=== PATIENT | male | born 1985 | race Caucasian/White ===

== ENCOUNTER 2016-12-20 06:25 | Emergency (ER) | payer BC ==
[2016-12-20] MEDS ORDERED: Ondansetron 4 MG/2 ML SDV IVPUSH ONE (06:45)
[2016-12-20] MEDS ORDERED: Sodium Chloride 0.9% 1,000 ML IV SCH (06:45)
[2016-12-20] MEDS ORDERED: Dicyclomine 10 MG Cap PO ONE (06:46)
[2016-12-20 07:10] LABS: CHLORIDE,CL 106 mmol/L (98-110); SODIUM,NA 140 mmol/L (136-146)
--- NOTE | 2016-12-20 08:48 | EDM.PDOC ---
ED HPI GENERAL MEDICAL PROBLEM - General Chief Complaint: Abdominal Pain Stated Complaint: ABDOMINAL PAIN Time Seen by Provider: 12/20/16 08:34 - History of Present Illness INITIAL COMMENTS - FREE TEXT/NARRATIVE: HISTORY AND PHYSICAL: History of present illness: Patient is 31-year-old white male presents concern of vomiting diarrhea times one day he had no fever chills no chest pain cough or other concerns. Review of systems: As per history of present illness and below otherwise all systems reviewed and negative. Past medical history: As per history of present illness and as reviewed below otherwise noncontributory. Surgical history: As per history of present illness and as reviewed below otherwise noncontributory. Social history: No reported history of drug or alcohol abuse. Family history: As per history of present illness and as reviewed below otherwise noncontributory. Physical exam: HEENT: Atraumatic, normocephalic, pupils reactive, negative for conjunctival pallor or scleral icterus, mucous membranes slightly dry, throat clear, neck supple, nontender, trachea midline. Lungs: Clear to auscultation, breath sounds equal bilaterally, chest nontender. Heart: S1S2, regular, negative for clicks, rubs, or JVD. Abdomen: Soft, nondistended, nontender. Negative for masses or hepatosplenomegaly. Negative for costovertebral tenderness. Pelvis: Stable nontender. Genitourinary: Deferred. Rectal: Deferred. Extremities: Atraumatic, negative for cords or calf pain. Neurovascular unremarkable. Neuro: Awake, alert, oriented. Cranial nerves II through XII unremarkable. Cerebellum unremarkable. Motor and sensory unremarkable throughout. Exam nonfocal. Diagnostics: CBC CMP UA stool for C&S O&P and C. difficile CT abdomen and pelvis Therapeutics: Will saline 1 L bolus Zofran 4 mg IV Bentyl 20 mg by mouth Impression: #1 gastroenteritis #2 mild dehydration Definitive disposition and diagnosis as appropriate pending reevaluation and review of above. Abdominal Pain Score (Numeric/FACES): 4 - Related Data Allergies Allergy/AdvReac Type Severity Reaction Status Date / Time No Known Allergies Allergy Verified 12/20/16 06:31 Home Meds: Home Meds . [No Known Home Meds] 12/20/16 [History] Past Medical History HEENT History: Reports: None Cardiovascular History: Reports: None Respiratory History: Reports: None Gastrointestinal History: Reports: None Genitourinary History: Reports: None Musculoskeletal History: Reports: None Neurological History: Reports: None Psychiatric History: Reports: None Endocrine/Metabolic History: Reports: None Hematologic History: Reports: None Oncologic (Cancer) History: Reports: None Dermatologic History: Reports: None - Infectious Disease History Infectious Disease History: Reports: None Social & Family History - Family History Family Medical History: Noncontributory - Tobacco Use Smoking Status *Q: Never Smoker - Caffeine Use Caffeine Use: Reports: Coffee, Energy drinks - Recreational Drug Use Recreational Drug Use: No ED ROS GENERAL - Review of Systems Review Of Systems: ROS reveals no pertinent complaints other than HPI. ED EXAM, GENERAL - Physical Exam Exam: See Below (See dictated) Course - Vital Signs Last Recorded V/S: Last Vital Signs Temp 36.0 C 12/20/16 06:32 Pulse 89 12/20/16 06:32 Resp 16 12/20/16 06:32 BP 163/87 H 12/20/16 06:32 Pulse Ox 97 12/20/16 06:32 - Orders/Labs/Meds Orders: Active Orders 24 hr Category Date Time Status Abdomen Pelvis wo Cont [CT] Stat Exams 12/20/16 06:42 Taken CDIFF TOX A+B [OP] Stat Lab 12/20/16 06:42 Uncollected CULTURE STOOL + CAMPY+SHIGATOX [RM] Stat Lab 12/20/16 06:42 Uncollected WBC, STOOL [OP] Stat Lab 12/20/16 06:45 Uncollected Sodium Chloride 0.9% [Normal Saline] 1,000 ml Med 12/20/16 06:45 Active IV ASDIRECTED Medication Orders Sodium Chloride (Normal Saline) 1,000 mls @ 999 mls/hr IV ASDIRECTED DALE Last Admin: 12/20/16 06:51 Dose: 999 mls/hr Labs: Laboratory Tests 12/20/16 12/20/16 12/20/16 Range/Units 06:40 06:40 08:10 WBC 4.70 (4.0-11.0) K/uL RBC 5.72 (4.50-5.90) M/uL Hgb 16.8 (13.0-17.0) g/dL Hct 50.1 H (38.0-50.0) % MCV 87.6 (80.0-98.0) fL MCH 29.4 (27.0-32.0) pg MCHC 33.5 (31.0-37.0) g/dL RDW Std Deviation 40.3 (28.0-62.0) fl RDW Coeff of Z[place] 13 (11.0-15.0) % Plt Count 239 (150-400) K/uL MPV 10.00 (7.40-12.00) fL Neut % (Auto) 45.9 L (48.0-80.0) % Lymph % (Auto) 41.3 H (16.0-40.0) % Wise % (Auto) 11.3 (0.0-15.0) % Eos % (Auto) 1.3 (0.0-7.0) % Baso % (Auto) 0.2 (0.0-1.5) % Neut # 2.2 (1.4-5.7) K/uL Lymph # 1.9 (0.6-2.4) K/uL Wise # 0.5 (0.0-0.8) K/uL Eos # 0.1 (0.0-0.7) K/uL Baso # 0.0 (0.0-0.1) K/uL Nucleated RBC % 0.0 /100WBC Nucleated RBCs # 0 K/uL Sodium 140 (136-146) mmol/L Potassium 4.0 (3.5-5.1) mmol/L Chloride 106 (98-110) mmol/L Carbon Dioxide 25 (21-31) mmol/L BUN 13 (6.0-23.0) mg/dL Creatinine 1.0 (0.6-1.5) mg/dL Est Cr Clr Drug Dosing 126.73 mL/min Estimated GFR (MDRD) > 60.0 ml/min Glucose 102 (60-110) mg/dL Calcium 9.2 (8.8-10.8) mg/dL Total Bilirubin 1.0 (0.1-1.5) mg/dL AST 24 (5-40) IU/L ALT 42 (8-54) IU/L Alkaline Phosphatase 47 (40-150) Total Protein 7.6 (6.0-8.0) g/dL Albumin 4.0 (3.5-5.0) g/dL Globulin 3.6 H (2.0-3.5) g/dL Albumin/Globulin Ratio 1.1 L (1.3-2.8) Urine Color YELLOW Urine Appearance CLEAR Urine pH 5.5 (5.0-8.0) Ur Specific [place] 1.020 (1.001-1.035) Urine Protein TRACE (NEGATIVE) mg/dL Urine Glucose (UA) NEGATIVE (NEGATIVE) mg/dL Urine Ketones NEGATIVE (NEGATIVE) mg/dL Urine Occult Blood NEGATIVE (NEGATIVE) Urine Nitrite NEGATIVE (NEGATIVE) Urine Bilirubin NEGATIVE (NEGATIVE) Urine Urobilinogen 0.2 (<2.0) EU/dL Ur Leukocyte Esterase NEGATIVE (NEGATIVE) Urine RBC RARE (0-2/HPF) Urine WBC 0-1 (0-5/HPF) Ur Epithelial Cells FEW (NONE-FEW) Urine Bacteria FEW (NEGATIVE) Urine Mucus LIGHT (NONE-MOD) Meds: Medications Generic Name Dose Route Start Last Admin Trade Name Freq PRN Reason Stop Dose Admin Sodium Chloride 1,000 mls @ 999 mls/hr 12/20/16 06:45 12/20/16 06:51 Normal Saline IV 999 mls/hr ASDIRECTED DALE Administration Discontinued Medications Generic Name Dose Route Start Last Admin Trade Name Freq PRN Reason Stop Dose Admin Dicyclomine HCl 20 mg 12/20/16 06:46 12/20/16 06:52 Bentyl PO 12/20/16 06:47 20 mg ONETIME ONE Administration Ondansetron HCl 8 mg 12/20/16 06:45 12/20/16 06:51 Zofran IVPUSH 12/20/16 06:46 8 mg ONETIME ONE Administration Departure - Departure Time of Disposition: 08:47 Disposition: Home, Self-Care 01 Condition: good Clinical Impression: Gastroenteritis, Dehydration Forms: ED Department Discharge Additional Instructions: The following information is given to patients seen in the emergency department who are being discharged to home. This information is to outline your options for follow-up care. We provide all patients seen in our emergency department with a follow-up referral. The need for follow-up, as well as the timing and circumstances, are variable depending upon the specifics of your emergency department visit. If you don't have a primary care physician on staff, we will provide you with a referral. We always advise you to contact your personal physician following an emergency department visit to inform them of the circumstance of the visit and for follow-up with them and/or the need for any referrals to a consulting specialist. The emergency department will also refer you to a specialist when appropriate. This referral assures that you have the opportunity for followup care with a specialist. All of these measure are taken in an effort to provide you with optimal care, which includes your followup. Under all circumstances we always encourage you to contact your private physician who remains a resource for coordinating your care. When calling for followup care, please make the office aware that this follow-up is from your recent emergency room visit. If for any reason you are refused follow-up, please contact the [facility] emergency department at and asked to speak to the emergency department charge nurse. Push fluids clear liquids as directed avoid dairy products x72 hours Motrin or Tylenol as directed Zofran as prescribed return as needed as discussed - My Orders Last 24 Hours: My Active Orders 12/20/16 06:42 Abdomen Pelvis wo Cont [CT] Stat CDIFF TOX A+B [OP] Stat CULTURE STOOL + CAMPY+SHIGATOX [RM] Stat 12/20/16 06:45 WBC, STOOL [OP] Stat Sodium Chloride 0.9% [Normal Saline] 1,000 ml IV ASDIRECTED - Assessment/Plan Last 24 Hours: My Active Orders 12/20/16 06:42 Abdomen Pelvis wo Cont [CT] Stat CDIFF TOX A+B [OP] Stat CULTURE STOOL + CAMPY+SHIGATOX [RM] Stat 12/20/16 06:45 WBC, STOOL [OP] Stat Sodium Chloride 0.9% [Normal Saline] 1,000 ml IV ASDIRECTED
[2016-12-20 08:57] VITALS: BP 126/71
--- NOTE | 2016-12-21 18:23 | CT ---
EXAM DATE: 12/20/16 PATIENT'S AGE: 31 Patient: ALEXX GUILLEN Facility: [place], [place] Site . Site : 1985 Study: CT Abdomen/Pelvis [id number]/5/2017 7:15:18 AM Ordering Physician: Doctor Hendrix Final Report: HISTORY: Generalized abdominal pain, right upper quadrant pain. Vomiting, dizziness. Technique: CT abdomen and pelvis without contrast. Comparison: None. Findings: Abdomen: Unenhanced liver, gallbladder, pancreas, and adrenal glands are unremarkable. Spleen is mildly enlarged measuring 13.5 cm in craniocaudal dimension. No nephroureterolithiasis. No hydronephrosis. No dilated bowel. Appendix is normal. No ascites. No free intraperitoneal gas. No lymphadenopathy. No abdominal aortic aneurysm. Pelvis: No free fluid. No lymphadenopathy. Musculoskeletal: No acute findings. Mild degenerative changes in the thoracic spine. Left sacroiliac joint degenerative changes. Lower chest: 5 mm noncalcified nodule in the right lower lobe (series 201 image 11). Impression: 1. No acute findings in the abdomen or pelvis. 2. Mild splenomegaly. 3. Indeterminate 5 mm pulmonary nodule in the right lower lobe. Recommend followup chest CT in 6-12 months. Dictated by Supa Vera MD @ Dec 20 2016 7:43AM (Electronic Signature) Report Signed by Proxy and Original Signed Document filed in the Medical Record. JENNIFER
== END 2016-12-20 08:56 | disposition home or self-care (01) ==
LOC: MW.ED 06:25
DX: K52.9 Noninfective gastroenteritis and colitis, unspecified (principal); E86.0 Dehydration
CPT/HCPCS: 36415; 74176; 80053; 81001; 85025; 96361; 96374; 99284; A9270; J2405; J7040

== ENCOUNTER 2018-11-19 12:34 | Emergency (ER) | payer BC, OTHER ==
--- NOTE | 2018-11-19 13:07 | EDM.PDOC ---
ED HPI GENERAL MEDICAL PROBLEM - General Chief Complaint: ENT Problem Stated Complaint: SORE THROAT Time Seen by Provider: 11/19/18 13:06 Source of Information: Reports: Patient History Limitations: Reports: No Limitations - History of Present Illness INITIAL COMMENTS - FREE TEXT/NARRATIVE: HISTORY AND PHYSICAL: History of present illness: Patient is a 33-year-old male who presents to the emergency room with complaints of sore throat and bilateral ear fullness 2 days. He states that he has been around a coworker who recently had strep throat and Influenza. He is currently taking Tamiflu prophylactically due to this exposure.. He denies any fever, chills, chest pain, shortness of breath or cough. Denies any abdominal pain, nausea, vomiting, diarrhea or constipation. He has been able to eat and drink appropriately although this does cause some pain. He has been using Tylenol and ibuprofen [id number] with moderate relief. Review of systems: As per history of present illness and below otherwise all systems reviewed and negative. Past medical history: As per history of present illness and as reviewed below otherwise noncontributory. Surgical history: As per history of present illness and as reviewed below otherwise noncontributory. Social history: See social history for further information Family history: As per history of present illness and as reviewed below otherwise noncontributory. Physical exam: General: Well-developed and well-nourished 33-year-old male. Alert and oriented. Nontoxic appearing and in no acute distress. HEENT: Atraumatic, normocephalic, pupils equal and reactive bilaterally, negative for conjunctival pallor or scleral icterus, mucous membranes moist, TMs normal bilaterally, erythema to the posterior oropharynx without exudate, neck supple, nontender, trachea midline. No drooling or trismus noted. No meningeal signs. No hot potato voice noted. Lungs: Clear to auscultation, breath sounds equal bilaterally, chest nontender. Heart: S1S2, regular rate and rhythm without overt murmur Abdomen: Soft, nondistended, nontender. Negative for masses or hepatosplenomegaly. Negative for costovertebral tenderness. Pelvis: Stable nontender. Genitourinary: Deferred. Rectal: Deferred. Skin: Intact, warm, dry. No lesions or rashes noted. Extremities: Atraumatic, negative for cords or calf pain. Neurovascular unremarkable. Neuro: Awake, alert, oriented. Cranial nerves II through XII unremarkable. Cerebellum unremarkable. Motor and sensory unremarkable throughout. Exam nonfocal. Diagnostics: None Therapeutics: None Prescription: Augmentin Impression: Pharyngitis Plan: 1. Please take the antibiotic as prescribed. 2. Tylenol and/or ibuprofen as needed for pain and fever management. You may use [id number] lozenges for throat pain relief. Warm saltwater gargle rinses spit 3-4 times daily. Please continue toothbrush once you have started the antibiotic to avoid reinfection. 3. Please follow-up with your primary care provider and oriented the research executive in the next 1-2 days. Return to the ED as needed and as discussed. Definitive disposition and diagnosis as appropriate pending reevaluation and review of above. Throat Pain Score (Numeric/FACES): 3 - Related Data Allergies Allergy/AdvReac Type Severity Reaction Status Date / Time No Known Allergies Allergy Verified 11/19/18 14:33 Home Meds: Home Meds Amoxicillin/Clavulanate K [Augmentin 875-125 MG] 1 tab PO BID 10 Days #20 tablet 11/19/18 [Rx] Oseltamivir [Tamiflu] 1 tab ASDIRECTED 11/19/18 [History] Past Medical History HEENT History: Reports: None Cardiovascular History: Reports: None Respiratory History: Reports: None Gastrointestinal History: Reports: None Genitourinary History: Reports: None Musculoskeletal History: Reports: None Neurological History: Reports: None Psychiatric History: Reports: None Endocrine/Metabolic History: Reports: None Hematologic History: Reports: None Oncologic (Cancer) History: Reports: None Dermatologic History: Reports: None - Infectious Disease History Infectious Disease History: Reports: None Social & Family History - Family History Family Medical History: Noncontributory - Caffeine Use Caffeine Use: Reports: Coffee, Energy Drinks ED ROS ENT - Review of Systems Review Of Systems: ROS reveals no pertinent complaints other than HPI. ED EXAM, ENT - Physical Exam Exam: See Below (See dictation) Course - Vital Signs Last Recorded V/S: Last Vital Signs Temp Pulse 94 11/19/18 13:30 Resp 18 11/19/18 13:30 BP 161/85 H 11/19/18 13:30 Pulse Ox 97 11/19/18 13:30 Departure - Departure Time of Disposition: 13:40 Disposition: Home, Self-Care 01 Clinical Impression: Pharyngitis Qualifiers: Pharyngitis/tonsillitis etiology: unspecified etiology Qualified Code(s): J02.9 - Acute pharyngitis, unspecified - Discharge Information Prescriptions: Amoxicillin/Clavulanate K [Augmentin 875-125 MG] 1 tab PO BID 10 Days #20 tablet Instructions: Pharyngitis, [id number] Referrals: Owen Soria MD [Primary Care Provider] - Forms: ED Department Discharge Additional Instructions: The following information is given to patients seen in the emergency department who are being discharged to home. This information is to outline your options for follow-up care. We provide all patients seen in our emergency department with a follow-up referral. The need for follow-up, as well as the timing and circumstances, are variable depending upon the specifics of your emergency department visit. If you don't have a primary care physician on staff, we will provide you with a referral. We always advise you to contact your personal physician following an emergency department visit to inform them of the circumstance of the visit and for follow-up with them and/or the need for any referrals to a consulting specialist. The emergency department will also refer you to a specialist when appropriate. This referral assures that you have the opportunity for follow-up care with a specialist. All of these measure are taken in an effort to provide you with optimal care, which includes your follow-up. Under all circumstances we always encourage you to contact your private physician who remains a resource for coordinating your care. When calling for follow-up care, please make the office aware that this follow-up is from your recent emergency room visit. If for any reason you are refused follow-up, please contact the [facility] Emergency Department at and asked to speak to the emergency department charge nurse. [facility] [address] [place] [id number] [address] 1. Please take the antibiotic as prescribed. 2. Tylenol and/or ibuprofen as needed for pain and fever management. You may use [id number] lozenges for throat pain relief. Warm saltwater gargle rinses spit 3-4 times daily. Please continue toothbrush once you have started the antibiotic to avoid reinfection. 3. Please follow-up with your primary care provider and oriented the research executive in the next 1-2 days. Return to the ED as needed and as discussed.
[2018-11-19 14:33] VITALS: BP 161/85
== END 2018-11-19 13:52 | disposition home or self-care (01) ==
LOC: MW.ED 12:34
DX: J02.9 Acute pharyngitis, unspecified (principal); F17.220 Nicotine dependence, chewing tobacco, uncomplicated
CPT/HCPCS: 99283